=== PATIENT | male | born 1980 | race Caucasian/White ===

== ENCOUNTER 2017-02-02 04:47 | Emergency (ER) | payer BC | END 2017-02-02 08:50 | disposition home or self-care (01) | LOC: ER1 04:47 | DX: G43.909 Migraine, unspecified, not intractable, without status migrainosus (principal); Z88.8 Allergy status to other drugs, medicaments and biological substances | CPT/HCPCS: 96374; 96375; 99283; J1200; J1885; J2765 ==

== ENCOUNTER 2021-09-16 17:01 | Emergency (ER) | payer OTHER ==
[~2021-09-16 17:01] MED LIST: BACTRIM DS TAB1 EACH PO; BUTALB-ACETAMI1 EAC1 PO; EXPECTORANT200 MG PO; FLONASE 0.05% N16 GM; PREDNISONE 50 M50 MG PO
== END 2021-09-16 22:57 | disposition home or self-care (01) ==
LOC: ER1 17:01
DX: R51.9 Headache, unspecified (principal); J32.8 Other chronic sinusitis; Z88.8 Allergy status to other drugs, medicaments and biological substances
CPT/HCPCS: 70450; 96365; 96366; 96375; 99284; J1200; J1885; J2405; J7030

== ENCOUNTER 2022-05-29 23:22 | Emergency (ER) | payer OTHER ==
[2022-05-30 02:18] LABS: HEMOGLOBIN 13.9 gm/dl (14.0-17.5); RED BLOOD COUNT 4.23 M/UL (4.20-5.50); WHITE BLOOD COUNT 9.3 K/UL (4.5-11.0)
[2022-05-30 02:37] LABS: BUN/CREATININE RATIO 20 (0-10)
== END 2022-05-30 04:15 | disposition home or self-care (01) ==
LOC: ER1 23:22
PROVIDERS: Emergency Medicine
DX: K80.50 Calculus of bile duct without cholangitis or cholecystitis without obstruction (principal)
CPT/HCPCS: 80053; 81001; 83605; 83690; 85025; 99283

== ENCOUNTER → 2022-05-31 | Outpatient (CLI) | payer OTHER | LOC: US 08:38 → EXRD 08:38 | DX: R10.11 Right upper quadrant pain (principal) | CPT/HCPCS: 76705 ==